=== PATIENT | female | born 1980 | race Caucasian/White ===

== ENCOUNTER 2019-07-16 12:09 | Emergency (ER) | payer MEDICAID ==
[~2019-07-16] VITALS: Ht 167.6 cm; Wt 61.0 kg
[2019-07-16 13:55] VITALS: BP 104/61
== END 2019-07-16 14:10 | disposition left against medical advice (07) ==
LOC: ER 12:09
DX: S61.210D Laceration without foreign body of right index finger without damage to nail, subsequent encounter (principal); W26.8XXD Contact with other sharp object(s), not elsewhere classified, subsequent encounter
CPT/HCPCS: 29130; 73140; 99283